=== PATIENT | male | born 1965 | race Caucasian/White ===

== ENCOUNTER 2022-01-29 16:07 | Emergency (ER) | payer BC, MEDICAID ==
[~2022-01-29] VITALS: Ht 182.9 cm; Wt 72.7 kg
[2022-01-29] MEDS ORDERED: cephalexin 250mg capsule PO ONE (18:45)
--- NOTE | 2022-01-29 19:07 | NUR ---
RN APPLIED WALKING BOOT PER PA INSTRUCTION
[2022-01-29] MEDS ORDERED: CEPH500C2 PO (19:21)
[2022-01-29 19:28] VITALS: BP 168/82
== END 2022-01-29 19:33 | disposition home or self-care (01) ==
LOC: ER 16:07
DX: M76.61 Achilles tendinitis, right leg (principal); E11.9 Type 2 diabetes mellitus without complications; Z79.2 Long term (current) use of antibiotics; X50.0XXA Overexertion from strenuous movement or load, initial encounter; Y93.89 Activity, other specified; Y92.89 Other specified places as the place of occurrence of the external cause; Y99.8 Other external cause status
CPT/HCPCS: 73590; 73610; 82948; 99284; L4360

== ENCOUNTER 2023-03-02 08:26 | Emergency (ER) | payer BC ==
[~2023-03-02] VITALS: Ht 182.9 cm; Wt 58.0 kg
[2023-03-02 11:26] LABS: BASOPHILS % (AUTO) 0.5 % (0-1); EOSINOPHILS # (AUTO) 0.2 X10'3 (0-0.9); EOSINOPHILS % (AUTO) 2.4 % (0-6); HEMATOCRIT 46.2 % (42.0-52.0); HEMOGLOBIN 15.7 g/dl (14.0-17.9); LYMPHOCYTES # (AUTO) 1.3 X10'3 (1.1-4.8); LYMPHOCYTES % (AUTO) 15.9 % (21-51); MEAN CORPUSCULAR HEMOGLOBIN 31.3 PG (27.0-31.0); MEAN CORPUSCULAR VOLUME 91.9 FL (78-98); MEAN PLATELET VOLUME 9.1 FL (7.4-10.4); MONOCYTES # (AUTO) 0.4 X10'3 (0-0.9); MONOCYTES % (AUTO) 5.6 % (2-12); NEUTROPHILS % (AUTO) 75.6 % (42-75); PLATELET COUNT 212 X10'3 (140-440); RED BLOOD COUNT 5.02 X10'6 (4.70-6.10); RED CELL DISTRIBUTION WIDTH 14.3 % (11.5-14.5); WHITE BLOOD COUNT 7.9 X10'3 (4.5-11.0)
[2023-03-02 11:39] LABS: ALANINE AMINOTRANSFERASE 23 U/L (12-78); ALBUMIN 4.2 G/DL (3.4-5.0); ALBUMIN/GLOBULIN RATIO 1.1 (1.1-1.5); ALKALINE PHOSPHATASE 68 IU/L (46-116); ANION GAP 11 (8-16); ASPARTATE AMINO TRANSFERASE 14 U/L (10-37); BILIRUBIN,TOTAL 0.3 MG/DL (0.1-1.0); BLOOD UREA NITROGEN 12 MG/DL (7-18); BUN/CREATININE RATIO 16.2 (10.0-20.0); CALCIUM 10.3 MG/DL (8.5-10.1); CHLORIDE 99 MMOL/L (99-107); CREATININE 0.74 MG/DL (0.60-1.10); GLUCOSE 347 MG/DL (70-104); POTASSIUM 4.1 MMOL/L (3.5-5.1); SODIUM 137 MMOL/L (135-145); TOTAL CARBON DIOXIDE 27.2 MMOL/L (24-32); TOTAL PROTEIN 8.2 G/DL (6.4-8.2); eGFR > 90 ML/MIN
[2023-03-02] MEDS ORDERED: insulin regular, human 10 units/0.1 ml syringe IV ONE (11:55)
[2023-03-02 12:11] VITALS: BP 121/84; PULSE 78; RESP 16; O2SAT 100
[2023-03-02 12:33] LABS: CLARITY,URINE CLEAR (Clear); COLOR,URINE YELLOW (Yellow); GLUCOSE, URINE >=1000 mg/dl (Neg); KETONES,URINE NEGATIVE (Neg); LEUKOCYTE ESTERASE ,URINE NEGATIVE (Neg); NITRITES, URINE NEGATIVE (Neg); OCCULT BLOOD,URINE NEGATIVE (Neg); PH,URINE 5.5 (4.8-8.0); PROTEIN,URINE NEGATIVE (Neg); UROBILINOGEN,URINE 0.2 E.U/dL (0.2-1.0)
[2023-03-02 12:38] LABS: UA COLLECTION TYPE VOIDED
[2023-03-02 12:39] LABS: BACTERIA,URINE NONE SEEN /HPF (Neg); RBC,URINE 0-2 /HPF (0-2); SQUAMOUS EPITHELIAL CELL,UR NONE SEEN /LPF (FEW); WBC,URINE NONE SEEN /HPF (0-4)
[2023-03-02 12:40] LABS: MUCUS STRANDS FEW /LPF (Neg)
[2023-03-02 12:42] LABS: URINE AMPHETAMINE SCREEN NEGATIVE (Neg); URINE BARBITUATE SCREEN NEGATIVE (Neg); URINE BENZODIAZEPINES SCREEN NEGATIVE (Neg); URINE CANNABINOID SCREEN NEGATIVE (Neg); URINE COCAINE SCREEN NEGATIVE (Neg); URINE METHADONE SCREEN NEGATIVE (Neg); URINE OPIATE SCREEN NEGATIVE (Neg); URINE PHENCYCLIDINE SCREEN NEGATIVE (Neg)
[2023-03-02] MEDS ORDERED: metFORMIN 500mg tablet PO ONE (13:30)
[2023-03-02] MEDS ORDERED: METF-900 PO (13:32)
== END 2023-03-02 13:56 | disposition home or self-care (01) ==
LOC: ER 08:27
DX: E11.65 Type 2 diabetes mellitus with hyperglycemia (principal); H53.8 Other visual disturbances; E11.42 Type 2 diabetes mellitus with diabetic polyneuropathy; Z79.899 Other long term (current) drug therapy
CPT/HCPCS: 36415; 80053; 80305; 81001; 82948; 85025; 96374; 99283; J1815

== ENCOUNTER 2023-07-27 17:59 | Inpatient (IN) | payer BC, MEDICAID ==
[~2023-07-27] VITALS: Ht 185.4 cm; Wt 78.6 kg
[2023-07-27 19:13] LABS: BASOPHILS % (AUTO) 0.2 % (0-1); EOSINOPHILS % (AUTO) 0.4 % (0-6); HEMATOCRIT 42.3 % (42.0-52.0); HEMOGLOBIN 14.3 g/dl (14.0-17.9); LYMPHOCYTES # (AUTO) 1.3 X10'3 (1.1-4.8); LYMPHOCYTES % (AUTO) 11.5 % (21-51); MEAN CORPUSCULAR HEMOGLOBIN 30.7 PG (27.0-31.0); MEAN CORPUSCULAR HGB CONC 33.8 g/dL (33.0-36.5); MEAN CORPUSCULAR VOLUME 90.7 FL (78-98); MEAN PLATELET VOLUME 9.1 FL (7.4-10.4); MONOCYTES # (AUTO) 0.8 X10'3 (0-0.9); MONOCYTES % (AUTO) 7.4 % (2-12); NEUTROPHILS # (AUTO) 8.8 X10'3 (1.8-7.7); NEUTROPHILS % (AUTO) 80.5 % (42-75); PLATELET COUNT 182 X10'3 (140-440); RED BLOOD COUNT 4.67 X10'6 (4.70-6.10); RED CELL DISTRIBUTION WIDTH 14.4 % (11.5-14.5)
[2023-07-27 19:18] LABS: BILIRUBIN,URINE NEGATIVE (Neg); CLARITY,URINE CLEAR (Clear); COLOR,URINE YELLOW (Yellow); GLUCOSE, URINE 100 mg/dl (Neg); KETONES,URINE NEGATIVE (Neg); LEUKOCYTE ESTERASE ,URINE NEGATIVE (Neg); NITRITES, URINE NEGATIVE (Neg); OCCULT BLOOD,URINE NEGATIVE (Neg); PROTEIN,URINE TRACE mg/dl (Neg)
[2023-07-27 19:21] LABS: UA COLLECTION TYPE CLN CATCH MIDSTREAM
[2023-07-27 19:24] LABS: BACTERIA,URINE NONE SEEN /HPF (Neg); MUCUS STRANDS MANY /LPF (Neg); RBC,URINE NONE SEEN /HPF (0-2); SQUAMOUS EPITHELIAL CELL,UR FEW /LPF (FEW); WBC,URINE 0-4 /HPF (0-4)
[2023-07-27 19:29] LABS: ALANINE AMINOTRANSFERASE 25 U/L (12-78); ALKALINE PHOSPHATASE 47 IU/L (46-116); ANION GAP 7 (8-16); ASPARTATE AMINO TRANSFERASE 15 U/L (10-37); BILIRUBIN,TOTAL 0.5 MG/DL (0.1-1.0); BLOOD UREA NITROGEN 11 MG/DL (7-18); BUN/CREATININE RATIO 14.3 (10.0-20.0); CALCIUM 10.3 MG/DL (8.5-10.1); CHLORIDE 102 MMOL/L (99-107); CREATININE 0.77 MG/DL (0.60-1.10); GLUCOSE 83 MG/DL (70-104); LIPASE 12 U/L (16-77); POTASSIUM 3.7 MMOL/L (3.5-5.1); SODIUM 138 MMOL/L (135-145); TOTAL CARBON DIOXIDE 29.3 MMOL/L (24-32); TOTAL PROTEIN 7.9 G/DL (6.4-8.2); eCRCL 121 ML/MIN; eGFR > 90 ML/MIN
[2023-07-27] MEDS ORDERED: normal saline 1000ML IV soln IVB ONE (23:50)
[2023-07-27] MEDS ORDERED: iohexol 300mg/ml 100ml inj. ONE (23:57)
[2023-07-28] VITALS (20 sets, daily range): BP systolic 98–130; BP diastolic 41–66; PULSE 59–78; RESP 12–19; TEMP 97.3–98.7; O2SAT 93–100
[2023-07-28 00:14] LABS: C-REACTIVE PROTEIN 2.82 MG/DL (0.0-0.5); ETHANOL < 10 MG/DL (<10)
[2023-07-28 00:36] LABS: URINE AMPHETAMINE SCREEN NEGATIVE (Neg); URINE BARBITUATE SCREEN NEGATIVE (Neg); URINE BENZODIAZEPINES SCREEN NEGATIVE (Neg); URINE CANNABINOID SCREEN NEGATIVE (Neg); URINE COCAINE SCREEN NEGATIVE (Neg); URINE METHADONE SCREEN NEGATIVE (Neg); URINE OPIATE SCREEN NEGATIVE (Neg); URINE PHENCYCLIDINE SCREEN NEGATIVE (Neg)
[2023-07-28] MEDS ORDERED: ondansetron/PF 4mg/2ml inj IV ONE ×2 (01:35→04:45)
[2023-07-28] MEDS ORDERED: piperacillin/tazo 3.375gm/50ml 50 ML IV ONE (02:25)
[2023-07-28] MEDS ORDERED: morphine 4 MG/ML inj SYRINge IV ONE (03:15)
[2023-07-28] MEDS ORDERED: INSU100I31 SQ (05:31)
[2023-07-28] MEDS ORDERED: METF-436 PO (05:31)
[2023-07-28] MEDS ORDERED: glucagon, human recombinant 1mg kit SUBCUT PRN (05:45)
[2023-07-28] MEDS ORDERED: proCHLORperazine 10 MG/2 ml inj IV PRN ×2 (05:45→12:45)
[2023-07-28] MEDS ORDERED: acetaminophen 325mg tablet PO PRN (05:45)
[2023-07-28] MEDS ORDERED: insulin Lispro (HumaLOG) vial - multi-dose SQ SCH (05:45)
[2023-07-28] MEDS ORDERED: potassium Cl 20 mEq SR tablet PO PRN ×2 (05:45)
[2023-07-28] MEDS ORDERED: magnesium 4gm in 100ml NS 100 ML IV PRN (05:45)
[2023-07-28] MEDS ORDERED: potassium Cl 40MEQ/1/2NS 520ml 520 ML IV PRN (05:45)
[2023-07-28] MEDS ORDERED: DEXTROSE 15 GM of carb/4 tabs (each vial/BOTTLE has 4 tablets) PO PRN ×2 (05:45)
[2023-07-28] MEDS ORDERED: HYDROmorphone inj. 0.5 MG/0.5 ML DISP.SYRIN IV PRN (05:45)
[2023-07-28] MEDS ORDERED: mag hydrox/Alum hydrox/simeth 30ml oral suspension PO PRN (05:45)
[2023-07-28] MEDS ORDERED: dextrose 50%-water 50ml dispensing syringe IV PRN ×2 (05:45)
[2023-07-28] MEDS ORDERED: HYDROmorphone/PF 0.2 MG/ML SYRINGE IV PRN (05:45)
[2023-07-28] MEDS ORDERED: magnesium 2GM in 50ml NS 50 ML IV PRN (05:45)
[2023-07-28] MEDS ORDERED: ondansetron/PF 4mg/2ml inj IV PRN ×2 (05:45→12:45)
[2023-07-28] MEDS ORDERED: MESSAGE TO PHARMACY PO ONE (05:45)
[2023-07-28] MEDS: normal saline 1000ml 1,000 ML IV SCH ×2 (05:58→16:08)
[2023-07-28] MEDS: K and/or MAG REPLACEMENT MC SCH ×2 (08:00→20:00)
[2023-07-28] MEDS: piperacillin/tazo 4.5gm/100ml 100 ML IV SCH ×2 (08:49→16:08)
[2023-07-28 09:22] LABS: BASOPHILS % (AUTO) 0.2 % (0-1); EOSINOPHILS % (AUTO) 0.2 % (0-6); HEMATOCRIT 37.3 % (42.0-52.0); HEMOGLOBIN 12.7 g/dl (14.0-17.9); LYMPHOCYTES # (AUTO) 1.1 X10'3 (1.1-4.8); LYMPHOCYTES % (AUTO) 10.3 % (21-51); MEAN CORPUSCULAR HEMOGLOBIN 30.9 PG (27.0-31.0); MEAN PLATELET VOLUME 9.4 FL (7.4-10.4); MONOCYTES # (AUTO) 0.9 X10'3 (0-0.9); MONOCYTES % (AUTO) 8.3 % (2-12); NEUTROPHILS # (AUTO) 8.6 X10'3 (1.8-7.7); PLATELET COUNT 160 X10'3 (140-440); RED CELL DISTRIBUTION WIDTH 14.7 % (11.5-14.5); WHITE BLOOD COUNT 10.6 X10'3 (4.5-11.0)
[2023-07-28 09:38] LABS: APTT 29 SECONDS (22-32); INR 1.1 INR; PROTHROMBIN TIME 11.5 SECONDS (9.0-12.0)
[2023-07-28 09:50] LABS: ALANINE AMINOTRANSFERASE 136 U/L (12-78); ALBUMIN 3.4 G/DL (3.4-5.0); ALKALINE PHOSPHATASE 75 IU/L (46-116); ANION GAP 10 (8-16); ASPARTATE AMINO TRANSFERASE 203 U/L (10-37); BILIRUBIN,TOTAL 0.8 MG/DL (0.1-1.0); BLOOD UREA NITROGEN 11 MG/DL (7-18); BUN/CREATININE RATIO 15.3 (10.0-20.0); CALCIUM 9.5 MG/DL (8.5-10.1); CHLORIDE 103 MMOL/L (99-107); CREATININE 0.72 MG/DL (0.60-1.10); GLUCOSE 82 MG/DL (70-104); POTASSIUM 3.5 MMOL/L (3.5-5.1); SODIUM 138 MMOL/L (135-145); TOTAL CARBON DIOXIDE 25.1 MMOL/L (24-32); TOTAL PROTEIN 6.9 G/DL (6.4-8.2); eCRCL 129 ML/MIN; eGFR > 90 ML/MIN
[2023-07-28] MEDS ORDERED: BUPIVAcaine 2.5mg/ml inj 50ml vial (contains preservative) ONE (12:12)
[2023-07-28] MEDS ORDERED: morphine 4 MG/ML inj SYRINge IV PRN (12:45)
[2023-07-28] MEDS ORDERED: meperidine/PF 25mg/ml syringe IV PRN ×3 (12:45)
[2023-07-28] MEDS ORDERED: morphine 2 MG/ML inj. syringe IV PRN (12:45)
[2023-07-28] MEDS ORDERED: ringers solution, lacted 1,000 ML IV SCH (12:45)
[2023-07-28] MEDS ORDERED: fentaNYL/PF 50MCG/1 ML 2ML syringe ONE (13:04)
[2023-07-28] MEDS ORDERED: midazolam 1 mg/ML 2ml injection ONE (13:05)
[2023-07-28] MEDS ORDERED: propofol inj 20 ML IV ONE (13:06)
[2023-07-28] MEDS ORDERED: rocuronium 10mg/ml inj IV ONE (13:06)
[2023-07-28] MEDS ORDERED: BUPIVAcaine 2.5mg/ml inj 50ml vial (contains preservative) SQ ONE ×2 (13:45→14:11)
[2023-07-28] MEDS ORDERED: dexamethasone sod phosphate 4mg/ml inj. ONE (14:13)
[2023-07-28] MEDS ORDERED: ondansetron/PF 4mg/2ml inj ONE (14:13)
[2023-07-28] MEDS ORDERED: neostigmine methylsulfate 1 MG/ML 10ml vial ONE (14:13)
[2023-07-28] MEDS ORDERED: glycopyrrolate 0.2mg/ml inj ONE (14:13)
[2023-07-28] MEDS ORDERED: naloxone 0.4 mg/ml inj IV PRN (14:25)
[2023-07-28] MEDS: HYDROcodone/acetaminophen 10/325mg tab PO PRN ×2 (16:08→23:26)
[2023-07-28] MEDS: enoxaparin 40mg/0.4ml syringe SQ SCH (20:13)
[2023-07-28] MEDS: insulin glargine (Lantus) pen - multi-dose SQ SCH (21:00)
[2023-07-29] MEDS: piperacillin/tazo 4.5gm/100ml 100 ML IV SCH ×3 (00:07→18:01)
[2023-07-29] MEDS: normal saline 1000ml 1,000 ML IV SCH ×3 (01:50→18:02)
[2023-07-29 02:00] VITALS: BP 110/54; PULSE 72; RESP 16; TEMP 98.4; O2SAT 97
[2023-07-29] MEDS: HYDROcodone/acetaminophen 10/325mg tab PO PRN ×4 (05:21→23:12)
[2023-07-29 06:00] VITALS: BP 111/66; PULSE 72; RESP 16; TEMP 98
[2023-07-29 06:09] LABS: BASOPHILS % (AUTO) 0.1 % (0-1); EOSINOPHILS % (AUTO) 0 % (0-6); HEMATOCRIT 35.8 % (42.0-52.0); HEMOGLOBIN 12.1 g/dl (14.0-17.9); LYMPHOCYTES # (AUTO) 0.9 X10'3 (1.1-4.8); LYMPHOCYTES % (AUTO) 8.1 % (21-51); MEAN CORPUSCULAR HEMOGLOBIN 30.6 PG (27.0-31.0); MEAN CORPUSCULAR HGB CONC 33.8 g/dL (33.0-36.5); MEAN CORPUSCULAR VOLUME 90.7 FL (78-98); MEAN PLATELET VOLUME 9.1 FL (7.4-10.4); MONOCYTES # (AUTO) 0.6 X10'3 (0-0.9); MONOCYTES % (AUTO) 5.7 % (2-12); NEUTROPHILS # (AUTO) 9.8 X10'3 (1.8-7.7); NEUTROPHILS % (AUTO) 86.1 % (42-75); PLATELET COUNT 155 X10'3 (140-440); RED BLOOD COUNT 3.94 X10'6 (4.70-6.10); RED CELL DISTRIBUTION WIDTH 14.4 % (11.5-14.5); WHITE BLOOD COUNT 11.3 X10'3 (4.5-11.0)
[2023-07-29 06:19] LABS: ALANINE AMINOTRANSFERASE 107 U/L (12-78); ALBUMIN 2.9 G/DL (3.4-5.0); ALBUMIN/GLOBULIN RATIO 0.8 (1.1-1.5); ALKALINE PHOSPHATASE 65 IU/L (46-116); ANION GAP 9 (8-16); ASPARTATE AMINO TRANSFERASE 67 U/L (10-37); BILIRUBIN,TOTAL 0.7 MG/DL (0.1-1.0); BLOOD UREA NITROGEN 14 MG/DL (7-18); BUN/CREATININE RATIO 16.1 (10.0-20.0); CHLORIDE 103 MMOL/L (99-107); CREATININE 0.87 MG/DL (0.60-1.10); GLUCOSE 173 MG/DL (70-104); POTASSIUM 4.1 MMOL/L (3.5-5.1); SODIUM 138 MMOL/L (135-145); TOTAL CARBON DIOXIDE 25.9 MMOL/L (24-32); TOTAL PROTEIN 6.6 G/DL (6.4-8.2); eCRCL 107 ML/MIN; eGFR > 90 ML/MIN
[2023-07-29 08:00] VITALS: RESP 18; O2SAT 98
[2023-07-29] MEDS: K and/or MAG REPLACEMENT MC SCH ×2 (08:00→20:00)
[2023-07-29 10:00] VITALS: BP 106/55; PULSE 70; RESP 15; TEMP 97.3; O2SAT 98
[2023-07-29 18:00] VITALS: BP 133/67; PULSE 63; RESP 15; TEMP 97.9; O2SAT 98
[2023-07-29] MEDS ORDERED: magnesium hydroxide 30ml (MOM) UD suspension PO ONE (20:00)
[2023-07-29] MEDS: enoxaparin 40mg/0.4ml syringe SQ SCH (20:57)
[2023-07-29 22:00] VITALS: BP 129/69; PULSE 65; RESP 16; TEMP 98.1; O2SAT 97
[2023-07-29] MEDS: insulin glargine (Lantus) pen - multi-dose SQ SCH (22:20)
[2023-07-30] MEDS: piperacillin/tazo 4.5gm/100ml 100 ML IV SCH ×2 (00:35→09:44)
[2023-07-30] MEDS: normal saline 1000ml 1,000 ML IV SCH (02:49)
[2023-07-30 06:16] LABS: ALANINE AMINOTRANSFERASE 65 U/L (12-78); ALBUMIN 2.8 G/DL (3.4-5.0); ALBUMIN/GLOBULIN RATIO 0.8 (1.1-1.5); ALKALINE PHOSPHATASE 51 IU/L (46-116); ANION GAP 5 (8-16); ASPARTATE AMINO TRANSFERASE 26 U/L (10-37); BASOPHILS % (AUTO) 0.4 % (0-1); BILIRUBIN,TOTAL 0.5 MG/DL (0.1-1.0); BLOOD UREA NITROGEN 9 MG/DL (7-18); BUN/CREATININE RATIO 11.3 (10.0-20.0); CALCIUM 8.9 MG/DL (8.5-10.1); CHLORIDE 105 MMOL/L (99-107); EOSINOPHILS # (AUTO) 0.1 X10'3 (0-0.9); EOSINOPHILS % (AUTO) 1.4 % (0-6); GLUCOSE 149 MG/DL (70-104); HEMATOCRIT 35.1 % (42.0-52.0); HEMOGLOBIN 11.9 g/dl (14.0-17.9); LYMPHOCYTES # (AUTO) 1.7 X10'3 (1.1-4.8); LYMPHOCYTES % (AUTO) 22.3 % (21-51); MAGNESIUM 2.2 MG/DL (1.5-2.4); MEAN CORPUSCULAR HEMOGLOBIN 30.6 PG (27.0-31.0); MEAN PLATELET VOLUME 9.1 FL (7.4-10.4); MONOCYTES # (AUTO) 0.4 X10'3 (0-0.9); MONOCYTES % (AUTO) 5.8 % (2-12); NEUTROPHILS # (AUTO) 5.4 X10'3 (1.8-7.7); NEUTROPHILS % (AUTO) 70.1 % (42-75); PLATELET COUNT 159 X10'3 (140-440); POTASSIUM 3.6 MMOL/L (3.5-5.1); RED CELL DISTRIBUTION WIDTH 14.4 % (11.5-14.5); SODIUM 140 MMOL/L (135-145); TOTAL CARBON DIOXIDE 30.2 MMOL/L (24-32); TOTAL PROTEIN 6.5 G/DL (6.4-8.2); WHITE BLOOD COUNT 7.7 X10'3 (4.5-11.0); eCRCL 116 ML/MIN; eGFR > 90 ML/MIN
[2023-07-30] MEDS: HYDROcodone/acetaminophen 10/325mg tab PO PRN ×2 (06:36→13:51)
[2023-07-30] MEDS ORDERED: magnesium hydroxide 30ml (MOM) UD suspension PO ONE (06:40)
[2023-07-30 08:00] VITALS: RESP 17; O2SAT 98
[2023-07-30] MEDS: K and/or MAG REPLACEMENT MC SCH (08:00)
[2023-07-30 11:23] LABS: HEMOGLOBIN A1C 7.3 % (4.5-6.2)
[2023-07-30] MEDS ORDERED: GABA-530 PO (12:26)
[2023-07-30] MEDS ORDERED: FLUT1DIS INH (12:26)
[2023-07-30] MEDS ORDERED: ERGO500093 PO (12:26)
[2023-07-30] MEDS ORDERED: HYDR-3973 PO (12:29)
[2023-07-30 13:51] VITALS: RESP 16
== END 2023-07-30 14:15 | disposition home or self-care (01) | DRG 234 ==
LOC: ER 17:59 → ED HOLD 07-28 05:50 → EDBEDREQ 07-28 09:49 → ORTHO 4S 07-28 10:47
PROVIDERS: ADMIT Family Medicine; ATTEND Family Medicine
PROC: BW211ZZ Computerized Tomography (CT Scan) of Abdomen and Pelvis using Low Osmolar Contrast (ICD-10-PCS; 2023-07-28)
PROC: 0DTJ4ZZ Resection of Appendix, Percutaneous Endoscopic Approach (ICD-10-PCS; principal; 2023-07-28 12:59)
DX: K35.891 Other acute appendicitis without perforation, with gangrene (principal); E11.42 Type 2 diabetes mellitus with diabetic polyneuropathy; Z20.822 Contact with and (suspected) exposure to COVID-19; Z79.84 Long term (current) use of oral hypoglycemic drugs; Z82.49 Family history of ischemic heart disease and other diseases of the circulatory system; Z83.3 Family history of diabetes mellitus
CPT/HCPCS: 36415; 71045; 74177; 80053; 80305; 80320; 81001; 82948; 83036; 83605; 83690; 83735; 84145; 85025; 85610; 85730; 86140; 87040; 87081; 87811; 96361; 96365; 96375; 96376; 99285; A4215; A4618; A6212; A6449; A7000; G0378; J1100; J1170; J1650; J1815; J2250; J2270; J2405; J2543; J2704; J2710; J3010; J3490; J7030; J7120; Q9967

== ENCOUNTER → 2023-11-06 | Outpatient (CLI) | payer MEDICAID ==
[~2023-11-06] MED LIST: ERGO500093 PO; FLUT1DIS INH; GABA-530 PO; INSU100I31 SQ; METF-436 PO
== END | disposition home or self-care (01) ==
LOC: RAD 10:41
PROVIDERS: ATTEND Family Medicine
DX: I51.89 Other ill-defined heart diseases (principal)
CPT/HCPCS: 71046

== ENCOUNTER 2023-11-18 06:39 | Emergency (ER) | payer MEDICAID ==
[~2023-11-18] VITALS: Ht 182.9 cm; Wt 80.8 kg
[2023-11-18] MEDS ORDERED: CYCL-1 PO (08:10)
[2023-11-18 08:28] VITALS: BP 126/79; PULSE 66; RESP 14; TEMP 98.6; O2SAT 99
== END 2023-11-18 08:33 | disposition home or self-care (01) ==
LOC: ER 06:39
DX: M54.50 Low back pain, unspecified (principal); J45.909 Unspecified asthma, uncomplicated; E11.9 Type 2 diabetes mellitus without complications; Z79.899 Other long term (current) drug therapy
CPT/HCPCS: 99283

== ENCOUNTER 2024-01-01 10:52 | Inpatient (IN) | payer MEDICAID ==
[~2024-01-01] VITALS: Ht 182.9 cm; Wt 74.7 kg
[~2024-01-01 10:52] MED LIST changes: +CYCL-1 PO
[2024-01-01 11:32] LABS: BASOPHILS # (AUTO) 0.1 X10'3 (0-0.2); EOSINOPHILS # (AUTO) 0.3 X10'3 (0-0.9); EOSINOPHILS % (AUTO) 5.2 % (0-6); HEMATOCRIT 45.1 % (42.0-52.0); HEMOGLOBIN 14.9 g/dl (14.0-17.9); LYMPHOCYTES # (AUTO) 1.8 X10'3 (1.1-4.8); LYMPHOCYTES % (AUTO) 27.7 % (21-51); MEAN CORPUSCULAR HEMOGLOBIN 30.3 PG (27.0-31.0); MEAN CORPUSCULAR VOLUME 91.9 FL (78-98); MONOCYTES # (AUTO) 0.4 X10'3 (0-0.9); MONOCYTES % (AUTO) 6.3 % (2-12); NEUTROPHILS # (AUTO) 3.8 X10'3 (1.8-7.7); NEUTROPHILS % (AUTO) 59.8 % (42-75); PLATELET COUNT 218 X10'3 (140-440); RED BLOOD COUNT 4.91 X10'6 (4.70-6.10); RED CELL DISTRIBUTION WIDTH 14.8 % (11.5-14.5); WHITE BLOOD COUNT 6.4 X10'3 (4.5-11.0)
[2024-01-01 11:50] LABS: ALBUMIN 4.4 G/DL (3.4-5.0); ANION GAP 7 (8-16); BLOOD UREA NITROGEN 14 MG/DL (7-18); BUN/CREATININE RATIO 15.9 (10.0-20.0); CALCIUM 10.6 MG/DL (8.5-10.1); CHLORIDE 102 MMOL/L (99-107); CREATININE 0.88 MG/DL (0.60-1.10); GLUCOSE 250 MG/DL (70-104); POTASSIUM 4.4 MMOL/L (3.5-5.1); PRO BRAIN NATRIURETIC PEPTIDE 57 PG/ML (0-125); SODIUM 135 MMOL/L (135-145); TOTAL CARBON DIOXIDE 26.2 MMOL/L (24-32); eCRCL 99 ML/MIN; eGFR 90 ML/MIN
[2024-01-01] MEDS ORDERED: magnesium hydroxide 30ml (MOM) UD suspension PO PRN (17:45)
[2024-01-01] MEDS: aspirin 81mg tab.chew PO ONE (17:45)
[2024-01-01] MEDS ORDERED: diphenhydrAMINE 50 mg/ml inj IV PRN (17:45)
[2024-01-01] MEDS ORDERED: acetaminophen 325mg tablet PO PRN ×2 (17:45)
[2024-01-01] MEDS ORDERED: ondansetron/PF 4mg/2ml inj IV PRN (17:45)
[2024-01-01] MEDS ORDERED: HYDROcodone/acetaminophen 5mg/325mg tablet PO PRN (17:45)
[2024-01-01] MEDS ORDERED: diphenhydrAMINE 25mg capsule PO PRN (17:45)
[2024-01-01] MEDS ORDERED: bisacodyl 10mg suppository rectal RC PRN (17:45)
[2024-01-01] MEDS ORDERED: mag hydrox/Alum hydrox/simeth 30ml oral suspension PO PRN (17:45)
[2024-01-01] MEDS ORDERED: ondansetron 4mg rapidly disintigrating tab PO PRN (17:45)
[2024-01-01] MEDS ORDERED: morphine 2 MG/ML inj. syringe IV PRN (17:45)
[2024-01-01] MEDS: normal saline 1000ml 1,000 ML IV SCH (18:01)
[2024-01-01] MEDS ORDERED: DEXTROSE 15 GM of carb/4 tabs (each vial/BOTTLE has 4 tablets) PO PRN ×4 (18:15)
[2024-01-01] MEDS ORDERED: dextrose 50%-water 50ml dispensing syringe IV PRN ×2 (18:15)
[2024-01-01] MEDS ORDERED: glucagon, human recombinant 1mg kit SUBCUT PRN (18:15)
[2024-01-01 19:07] LABS: D-DIMER < 0.19 MG/L FEU (0-0.50); HEMOGLOBIN A1C 7.9 % (4.5-6.2)
[2024-01-01 19:14] LABS: PHOSPHORUS 3.7 MG/DL (2.3-4.5); THYROID STIMULATING HORMONE 0.95 ulU/ml (0.34-4.50)
[2024-01-01 21:45] VITALS: BP 116/68; PULSE 61; RESP 16; TEMP 98; O2SAT 99
[2024-01-01] MEDS: heparin, porcine 5000 units/ml vial SQ SCH (21:45)
[2024-01-01] MEDS: docusate sod 100mg capsule PO SCH (21:47)
[2024-01-01] MEDS: temazepam 15mg capsule PO PRN (21:47)
[2024-01-01 22:00] VITALS: RESP 16; O2SAT 99
[2024-01-02] MEDS: INSULIN LISPRO 100 UNIT/ML INSULN.PEN MULTI-DOSE SQ SCH (00:46)
[2024-01-02 02:00] VITALS: BP 109/68; PULSE 59; RESP 14; TEMP 97.7; O2SAT 98
[2024-01-02 07:09] LABS: BASOPHILS # (AUTO) 0.1 X10'3 (0-0.2); BASOPHILS % (AUTO) 0.8 % (0-1); EOSINOPHILS # (AUTO) 0.4 X10'3 (0-0.9); EOSINOPHILS % (AUTO) 6.1 % (0-6); HEMATOCRIT 39.7 % (42.0-52.0); HEMOGLOBIN 13.1 g/dl (14.0-17.9); LYMPHOCYTES # (AUTO) 1.6 X10'3 (1.1-4.8); LYMPHOCYTES % (AUTO) 23.8 % (21-51); MEAN CORPUSCULAR HEMOGLOBIN 30.2 PG (27.0-31.0); MEAN CORPUSCULAR VOLUME 91.5 FL (78-98); MEAN PLATELET VOLUME 8.9 FL (7.4-10.4); MONOCYTES # (AUTO) 0.4 X10'3 (0-0.9); MONOCYTES % (AUTO) 5.8 % (2-12); NEUTROPHILS # (AUTO) 4.4 X10'3 (1.8-7.7); NEUTROPHILS % (AUTO) 63.5 % (42-75); PLATELET COUNT 181 X10'3 (140-440); RED BLOOD COUNT 4.34 X10'6 (4.70-6.10); RED CELL DISTRIBUTION WIDTH 14.6 % (11.5-14.5); WHITE BLOOD COUNT 6.9 X10'3 (4.5-11.0)
[2024-01-02 07:10] VITALS: BP 109/69; PULSE 56; RESP 14; TEMP 97.3; O2SAT 99
[2024-01-02 07:31] LABS: ALANINE AMINOTRANSFERASE 20 U/L (12-78); ALBUMIN 3.5 G/DL (3.4-5.0); ALBUMIN/GLOBULIN RATIO 1.1 (1.1-1.5); ALKALINE PHOSPHATASE 32 IU/L (46-116); ANION GAP 10 (8-16); ASPARTATE AMINO TRANSFERASE 16 U/L (10-37); BILIRUBIN,TOTAL 0.3 MG/DL (0.1-1.0); BLOOD UREA NITROGEN 18 MG/DL (7-18); BUN/CREATININE RATIO 32.1 (10.0-20.0); CALCIUM 9.7 MG/DL (8.5-10.1); CHLORIDE 108 MMOL/L (99-107); CHOL/HDL RATIO 2.3 (0.00-4.99); CHOLESTEROL 109 MG/DL (0-200); CREATININE 0.56 MG/DL (0.60-1.10); GLUCOSE 147 MG/DL (70-104); HDL CHOLESTEROL 47 MG/DL (35-60); LDL CHOLESTEROL 44 MG/DL (50-100); POTASSIUM 4.2 MMOL/L (3.5-5.1); SODIUM 141 MMOL/L (135-145); TOTAL CARBON DIOXIDE 23.4 MMOL/L (24-32); TOTAL PROTEIN 6.6 G/DL (6.4-8.2); TRIGLYCERIDES 134 MG/DL (20-135); eCRCL 156 ML/MIN; eGFR > 90 ML/MIN
[2024-01-02] MEDS: aspirin 81mg, enteric-coated 1 TAB TABLET.DR PO SCH (08:50)
[2024-01-02] MEDS: pantoprazole 40mg Tablet.DR PO SCH (08:50)
[2024-01-02] MEDS: nitroGLYCERIN 0.2mg/hour patch TD SCH (08:50)
[2024-01-02 11:00] VITALS: BP 120/73; PULSE 69; RESP 16; TEMP 98.1; O2SAT 94
[2024-01-02] MEDS ORDERED: aminophylline 250mg/10ml inj. IV PRN (12:15)
[2024-01-02] MEDS ORDERED: regadenoson 0.4mg/5ml syringe IV PRN (12:15)
[2024-01-02] MEDS ORDERED: metoprolol tartrate 1mg/ml inj IV PRN (12:15)
[2024-01-02] MEDS ORDERED: nitroGLYCERIN 0.4mg SUBLingual tab SL PRN (12:15)
[2024-01-02] MEDS ORDERED: ASPI81TA52 PO (13:37)
[2024-01-02] MEDS ORDERED: EMPA10TA PO (13:37)
== END 2024-01-02 15:07 | disposition home or self-care (01) | DRG 203 ==
LOC: ER 10:52 → ED HOLD 17:42 → UNDOADMIN 17:42 → ED HOLD 17:47 → PCU 3S 20:45 → ED HOLD 20:45
PROVIDERS: ADMIT Family Medicine; ATTEND Family Medicine
DX: R07.2 Precordial pain (principal); E11.42 Type 2 diabetes mellitus with diabetic polyneuropathy; F03.90 Unspecified dementia, unspecified severity, without behavioral disturbance, psychotic disturbance, mood disturbance, and anxiety; R07.89 Other chest pain; E78.5 Hyperlipidemia, unspecified; E11.65 Type 2 diabetes mellitus with hyperglycemia; G89.4 Chronic pain syndrome; H54.61 Unqualified visual loss, right eye, normal vision left eye; M19.09 Primary osteoarthritis, other specified site; J45.909 Unspecified asthma, uncomplicated; Z83.3 Family history of diabetes mellitus; Z87.891 Personal history of nicotine dependence; Z79.4 Long term (current) use of insulin
CPT/HCPCS: 36415; 71045; 80048; 80053; 80061; 82948; 83036; 83880; 84100; 84443; 84484; 85025; 85379; 87081; 93005; 93306; 99285; G0378; J1644; J1815; J7030